=== PATIENT | female | born 1970 | race Hispanic/Latino ===

== ENCOUNTER → 2018-02-09 | Outpatient (CLI) | payer BC ==
[~2018-02-09] MED LIST: GADOBENATE DIMEGLUMINE 1 ML IV ONE
--- NOTE | 2018-02-09 15:35 | Diagnostic Imaging Report ---
Exam: Brain MRI without IV contrast History: Headache, right-sided visual loss Comparison studies: None Technique: Precontrast axial DWI, axial T1 FLAIR, axial T2*GRE, axial and sagittal T2 FS. Postcontrast axial T2 FLAIR and axial and coronal T1 FS. Intravenous contrast: 13 cc MultiHance cc of Gadavist. Findings: Scalp: No abnormal signal. No masses. Bone marrow: Normal in signal intensity. Brain sulci: Appropriate for age. Ventricles: Normal in size. No hydrocephalus. Extra axial spaces: No mass, no fluid collection. Parenchyma: No abnormal signal intensities. No enhancing abnormalities. No masses, hemorrhage, or acute or chronic ischemic insults. No abnormal restricted diffusion. Suprasellar region: No abnormalities. Craniocervical junction: Patent foramen magnum. No Chiari one malformation. Vessels: Normal flow-voids in the arteries and sinuses. Incidental findings: Small right maxillary sinus retention cyst. IMPRESSION: No intracranial abnormalities. Signed by: Dr. Jeff Crews M.D. on 02/09/2018 3:31 PM
== END ==
LOC: MRI 13:53
PROVIDERS: ATTEND Family Medicine
DX: R51 Headache (principal); G45.3 Amaurosis fugax
CPT/HCPCS: 70553